=== PATIENT | female | born 1945 | race Caucasian/White ===

== ENCOUNTER 2021-01-20 14:54 | Inpatient (IN) | payer OTHER, BC ==
[~2021-01-20] VITALS: Ht 157.5 cm; Wt 96.6 kg
[2021-01-20 14:59] VITALS: BP 180/92
[2021-01-20 15:25] LABS: HEMATOCRIT 45.6 % (37.0-47.0); HEMOGLOBIN 15.1 gm/dL (12.0-15.0); MCH 31.5 pg (26.0-34.0); MCHC 33.1 g/dL (28.0-37.0); MCV 95.2 fL (80.0-100.0); RBC 4.79 mil/uL (4.20-5.00); RDW 13.5 % (10.5-14.5); WBC 10.8 thou/uL (4.0-11.0)
[2021-01-20 15:34] LABS: CALCIUM 9.1 mg/dL (8.5-10.1); POTASSIUM 4.3 mmol/L (3.5-5.1)
[2021-01-20 15:39] LABS: ALBUMIN 3.5 g/dL (3.4-5.0); TOTAL BILIRUBIN 0.3 mg/dL (0.2-1.0); TOTAL PROTEIN 7.4 g/dL (6.4-8.2)
[2021-01-20 17:46] LABS: URINE BILIRUBIN NEGATIVE (Negative); URINE BLOOD NEGATIVE (Negative); URINE CLARITY CLEAR; URINE COLOR YELLOW; URINE GLUCOSE-RANDOM* NEGATIVE (Negative); URINE KETONES NEGATIVE (Negative); URINE LEUKOCYTES-REFLEX NEGATIVE (Negative); URINE NITRITE-REFLEX NEGATIVE (Negative); URINE PROTEIN (DIPSTICK) NEGATIVE (Negative); URINE UROBILINOGEN 0.2 E.U./dl (0.2-1.0)
[2021-01-20 18:19] VITALS: BP 238/96
--- NOTE | 2021-01-20 18:23 | NUR ---
KEM WEST (FRIEND)-[phone]
[2021-01-20 18:38] VITALS: BP 187/66
[2021-01-20 19:32] VITALS: BP 148/64
[2021-01-20 21:00] VITALS: BP 190/73
[2021-01-20] MEDS ORDERED: FISH OIL 1,0001 EAC9 PO (21:37)
[2021-01-20] MEDS ORDERED: ASPIRIN EC81 M1 PO (21:39)
[2021-01-20] MEDS ORDERED: ZINC30 MG PO (21:42)
[2021-01-21 03:20] VITALS: BP 149/61
--- NOTE | 2021-01-21 07:23 | EKG ---
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: : 1945 Requested By: Ayush Samuels Order Number: [id number] MD: Pierre Blanco Measurements Intervals [place] Rate: 76 P: 47 VA: 188 QRS: -15 QRSD: 96 T: 53 QT: 440 QTc: 495 Interpretive Statements Sinus rhythm Probable left atrial enlargement Left ventricular hypertrophy Borderline prolonged QT interval No previous ECG available for comparison Electronically Signed On 01-21-2021 7:23:41 CDT by Pierre Blanco [email or web address] <ELECTRONICALLY SIGNED> By: Pierre Blanco MD, [facility] 01/21/21 0723 1521 1521 Pierre Blanco MD, FACC /EPI
--- NOTE | 2021-01-21 07:37 | NUR ---
RECEIVED REPORT FROM DAY SHIFT RN.PATIENT ON CARDENE GTT.PAIN WELL CONTROLLED WITH TYLENOL.BRADSHAW TO DD.NPO SINCE MIDNIGHT.MONITOR SHOWS SR.POC CONTINUED.
[2021-01-21 07:52] VITALS: BP 172/69
--- NOTE | 2021-01-21 11:40 | NUR ---
PT IS AXOX4, PLEASANT. VS BP 172/69, AFEBRILE, SR ON MONITOR. PT HAS NICARDIPINE GTT AT 10ML/HR; RECHECKED BP 163/64, REDUCED TO 5ML/HR. PT TO HAVE R HIP HEMIARTHROPLASTY THIS AM. ORTHO CONSULTED, DR SAAVEDRA CONSULTED. PT TAKEN TO PRE OP AT 1030. PT C/O OF SOME PAIN IN R HIP AREA RELATED TO R FEMUR. FALL PRECAUTIONS IN PLACE. PT COMMUNICATED UNDERSTANDING OF BEDREST. CONSENT SIGNED FOR PROCEDURE.
--- NOTE | 2021-01-21 15:05 | NUR ---
PT ADMITTED RELATED TO RIGHT FEMORAL NECK FRACTURE. CM REVIEWED CHART AND SPOKE WITH CARE TEAM. CM ATTEMPTED TO VISIT WITH PT TWICE THIS AM/EARLY AFTERNOON. PT WAS OFF THE UNIT FOR SURGERY. PT HAVING R HIP HEMIATHROPLASTY. CM CALLED AND SPOKE WITH PT'S SON DYLON . HE INDICATED THAT HIS MOM AND HIS FATHER RESIDE IN A HOUSE WITH A RAMP TO ENTER. 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 SON DYLON IS STAYING WITH FATHER NOW AND IS REACHING OUT TO ALWAYS THERE PD SERVICE RELATED TO ASSISTANCE. HE INIDCATED THAT HE KNOW SOMEONE OVER AT [facility] AND THAT THEY HAD REACHED OUT ON HIS BEHALF TO INQUIRE ABOUT PT GOING THERE SKILLED AND RESPITE FOR SPOUSE. KAYLEY CALLED LORI WELL AND SHE INDICATED SHE COULD LIKELY ACCEPT FOR SKILLED BUT SHE WASN'T SURE ABOUT THE RESPITE SHE DOESN'T HAVE ANY LTC BEDS OPEN. KAYLEY FAXED INITIAL CLINICAL OVER TO LORI AT [facility] FOR REVIEW. AWAITING THERAPY EVALS. CM FOLLOWING REGARDING DC PLANNING.
[2021-01-21 15:36] LABS: HEMOGLOBIN 14.7 gm/dL (12.0-15.0); MCH 31.7 pg (26.0-34.0); MCHC 32.7 g/dL (28.0-37.0); RBC 4.64 mil/uL (4.20-5.00); RDW 13.9 % (10.5-14.5)
--- NOTE | 2021-01-21 18:49 | NUR ---
RECEIVED THE PATIENT CONSCIOUS AND ORIENTED.ON ROOM AIR BREATHING SPONTANEOUSLY.WITH BRADSHAW CATHETER INTACT. HAD RIGHT HEIARTHROPLASTY TODAY FOR THE FRACTURED FEMORAL NECK.WAS ON NICARDIPINE DRIP WHEN WE RECIVED IN THE MORNING BUT WAS STOPPED IN THE OT PATIENT'S BLOOD PRESSURE HAS BEEN CONTROLLED.PATINE MAURICIOAS VITALLY STABLE POST SURGERY, DENIED ANY PAIN.ALL NEEDS ATTENDED
[2021-01-21 19:37] VITALS: BP 158/74
[2021-01-22 00:05] VITALS: BP 152/66
[2021-01-22 03:57] VITALS: BP 154/68
[2021-01-22 04:48] LABS: HEMATOCRIT 39.3 % (37.0-47.0); MCH 31.8 pg (26.0-34.0); MCHC 33.1 g/dL (28.0-37.0); MCV 96.1 fL (80.0-100.0); RBC 4.09 mil/uL (4.20-5.00); RDW 13.7 % (10.5-14.5); WBC 12.4 thou/uL (4.0-11.0)
--- NOTE | 2021-01-22 06:32 | NUR ---
PAIN WELL CONTROLLED WITH TYLENOL.RIGHT UPPER LEG DRESSING C/D/I.BRADSHAW TO DD.FERNANDO GTT NOT USED TONIGHT.MONITOR SHOWS SR.POC CONTINUED.
[2021-01-22 07:33] VITALS: BP 179/73
--- NOTE | 2021-01-22 08:02 | NUR ---
ASSUMED PT CARE AT 0700, AT 0800 ASSESSMENT PERFORMED CHARTED. VSS. WILL CONTINUE TO MONITOR. PT STATES HER PAIN IS CONTROLLED AT THIS MOMENT. WILL CONTINUE TO FOLLOW POC.
--- NOTE | 2021-01-22 08:59 | 2DMMODE ---
[facility] [place] [address] 2 D/M-MODE ECHOCARDIOGRAM Name: KIESHA MARK ANN Room #: 208-P ADM IN M.R.#: [id number] Admission: 01/20/21 Attend Phys: Jc Andrade MD Discharge: Date of : 43 Report #: [id number] THIS REPORT FOR: cc: Josie Geiger MD, Jennifer L MD Lammoglia, Francisco J. MD ~ APPROVED REPORT Study performed: 01/22/2021 08:11:41 EXAM: Comprehensive 2D, Doppler, and color-flow Echocardiogram Patient Location: Bedside Room #: 208 Status: routine BSA: 1.96 HR: 70 bpm BP: 179/73 mmHg Rhythm: NSR Other Information Study Quality: Adequate Indications Severe HTN. 2D Dimensions RVDd: 37.34 mm IVSd: 12.94 (7-11mm) LVOT Diam: 19.69 (18-24mm) LVDd: 45.27 mm PWd: 10.06 (7-11mm) LVDs: 28.47 (25-40mm) Left Atrium: 36.33 (27-40mm) Aortic Root: 36.05 mm Volumes Left Atrial Volume (Systole) Single Plane 4CH: 64.24 mL Single Plane 2CH: 46.25 mL LA ESV Index: 31.00 mL/m2 Aortic Valve AoV Peak Bhavin.: 1.46 m/s AO Peak Gr.: 8.49 mmHg LVOT Max P.11 mmHg LVOT Max V: 1.13 m/s JAYLON Vmax: 2.36 cm2 [facility] [address] [place] [address] 2 D/M-MODE ECHOCARDIOGRAM Name: KIESHA MARK Room #: 208-P [facility] IN ..#: [id number] Admission: 01/20/21 Attend Phys: Jc Andrade MD Discharge: Date of : 43 Report #: [id number] Mitral Valve E/A Ratio: 0.6 MV Decel. Time: 450.75 ms MV E Max Bhavin.: 0.63 m/s MV A Bhavin.: 1.09 m/s MV PHT: 130.72 ms IVRT: 110.73 ms Pulmonary Valve PV Peak Bhavin.: 1.00 m/s PV Peak Gr.: 3.99 mmHg Tricuspid Valve RAP Estimate: 5.00 mmHg Left Ventricle The left ventricle is normal size. There is normal LV segmental wall motion. Mild basal septal hypertrophy is present. Left ventricular systolic function is normal. LVEF is 65%. Mild diastolic dysfunction is present (impaired relaxation pattern). Right Ventricle The right ventricle is normal size. The right ventricular systolic function is normal. Atria Left atrium is at the upper limits of normal. The right atrium size is normal. Aortic Valve The aortic valve is normal in structure. No aortic regurgitation is present. There is no aortic valvular stenosis. Mitral Valve The mitral valve is normal in structure. Trace mitral regurgitation. No evidence of mitral valve stenosis. Tricuspid Valve The tricuspid valve is normal in structure. There is no tricuspid valve regurgitation noted. Unable to assess PA pressure. Pulmonic Valve Pulmonic valve is not well visualized. There is no pulmonic valvular regurgitation. Great Vessels [facility] [address] [place] [address] 2 D/M-MODE ECHOCARDIOGRAM Name: KIESHA MARK Room #: 208-P [facility] IN M.R.#: [id number] Admission: 01/20/21 Attend Phys: Jc Andrade MD Discharge: Date of : 43 Report #: [id number] The aortic root is normal in size. Ascending aorta is not well visualized. IVC is normal in size and collapses >50% with inspiration. Pericardium There is no pericardial effusion. <Conclusion> The left ventricle is normal size. Mild basal septal hypertrophy is present. LVEF is 65%. Left atrium is at the upper limits of normal. The aortic valve is normal in structure. The mitral valve is normal in structure. Trace mitral regurgitation. The tricuspid valve is normal in structure. There is no tricuspid valve regurgitation noted. Unable to assess PA pressure. Pulmonic valve is not well visualized. The aortic root is normal in size. There is no pericardial effusion. <ELECTRONICALLY SIGNED> By: Danie Tirado MD 01/22/21858 8 8 Danie Tirado MD /INF
--- NOTE | 2021-01-22 11:41 | NUR ---
PT WORKING WITH OT/PT THIS EARLY AFTERNOON. PT RATES PAIN AT A 3. PAIN MEDICATION GIVEN. PTS VSS. WILL CONTINUE TO MONITOR AND FOLLOW POC.
[2021-01-22 15:30] VITALS: BP 152/65
--- NOTE | 2021-01-22 15:47 | NUR ---
patient evaled by [facility] and accepted. Patient reports her spouse accepted to [facility] for respite care. She reports she is planning skilled rehab at facility so can be with her spouse. patient will consider [facility] but leaning to [facility]. Updated [facility] liason. Sp with son. He reports Richa admission at [facility] reports she stated have bed for patient and spouse. Casemgt has call to Richa at [facility]. Faxed clinical updates to [facility]. Updated son patient also considering [facility].
--- NOTE | 2021-01-22 15:52 | NUR ---
PT BACK IN BED FOLLOWING SITTING UP IN THE CHAIR FOR SOME TIME. PT DENIES PAIN AT THIS TIME. VSS. WILL CONTINUE TO MONITOR.
--- NOTE | 2021-01-22 18:44 | NUR ---
GAVE REPORT TO [facility]. RN VOICED NO CONCERNS AT THIS TIME, PT WILL BE TRANSFERRED AFTER SHIFT CHANGE.
[2021-01-22 20:38] VITALS: BP 180/66
[2021-01-22 22:12] VITALS: BP 181/65
[2021-01-23 00:11] VITALS: BP 155/58
--- NOTE | 2021-01-23 05:09 | NUR ---
ASSUMED CARE OF PT FROM 2N AROUND SHIFT CHANGE. PT IS AOX4 ANMD LETS NEEDS BE KNOWN. FALL PRECAUTION IN PLACE. BRADSHAW IN PLACE AND PATIENT. PT IS ON CLEAR LIQUID DIET AND IS READY TO ADVANCE. REPORTED SOME R HIP PAIN; PRNS PROVIDED. PT DENIED NAUSEA OR SOA. ASSESSMENT CHARTED. PT SLEPT PART OF THE SHIFT. PRN BP MEDICATION ORDERED AND GIVEN. NO S/S OF ACUTE DISTRESS. WILL CONTINUE TO MONITOR.
[2021-01-23 05:24] VITALS: BP 137/98
[2021-01-23 05:32] LABS: HEMATOCRIT 37.3 % (37.0-47.0); HEMOGLOBIN 12.2 gm/dL (12.0-15.0); MCH 31.8 pg (26.0-34.0); MCHC 32.8 g/dL (28.0-37.0); MCV 96.9 fL (80.0-100.0); RBC 3.84 mil/uL (4.20-5.00); RDW 13.8 % (10.5-14.5); WBC 11.1 thou/uL (4.0-11.0)
[2021-01-23 08:08] VITALS: BP 155/65
--- NOTE | 2021-01-23 14:12 | NUR ---
FAXED CLINICAL UPDATES, THERAPY NOTES AND NEGATIVE COVID RESULT TO [facility]. WILL CONFIRM WITH LORI/LIAISON THAT THEY RECEIVED AND IF ADDITIONAL INFORMATION NEEDED. [facility] P [phone]; FAX [phone]
[2021-01-23 16:04] VITALS: BP 184/66
--- NOTE | 2021-01-23 16:44 | NUR ---
CM MET WITH PT AT BEDSIDE THIS DAY. CM ASKED IF PT HD DETERMINED IF SHE WANTED [facility]. SHE INDICATED THAT SHE DIDN'T FEEL MEDICALLY STABLE TO DC ANYWHERE THIS DAY THAT SHE FELT LIKE SHE HIT A WALL. SHE SAID SHE WAS STILL DISCUSSING WITH HER SON. CM NOTIFED PHYSICIAN, 5[facility], AND VS. CM TO FOLLOW UP WITH PT IN THE AM.
--- NOTE | 2021-01-23 19:35 | NUR ---
ASSUMED CARE OF PT AT 0700 THIS MORNING. PT WAS ADMITTED AFTER REPAIR OF RIGHT HIP AND HTN. PT'S B/P HAS BEEN UNDER BETTER CONTROL. PT STATED SHE HAS BEEN MORE TIRED TODAY BUT WAS ABLE TO WORK WITH PHYS TH AND OT. PT HAS ANGELO DRESSING WITH ICE PK AND SYLVIA HOSE AND SCD'S IN PLACE. IV IN RIGHT WRIST WITH SL. ASSESSMENTS NOTED IN CHART AND OTHERWISE UNREMARKABLE. CALL LIGHT AND OTHER NEEDS ARE PLACED WITHIN REACH. MEDS AND TX GIVEN NEEDED AND CHARTED.
[2021-01-23 19:53] VITALS: BP 187/77
--- NOTE | 2021-01-24 05:03 | NUR ---
RECEIVED CARE OF THIS PATIENT AT 1900. PATIENT ALERT AND ORIENTED X4. UP WITH ASSIST OF 1. DRESSING ON R HIP INTACT. ICE APPLIED. HAS TEDS AND SCD'S ON. HAS PIV IN BOTH HANDS. C/O PAIN, MED GIVEN. SLEPT LITTLE THIS SHIFT.
[2021-01-24 05:13] VITALS: BP 197/78
[2021-01-24 08:02] VITALS: BP 174/64
--- NOTE | 2021-01-24 11:40 | O ---
[facility] [place] [address] OPERATIVE REPORT Name: KIESHA MARK Room #: 447-P ADM IN M.R.#: [id number] Admission: 01/20/21 Attend Phys: Jc Andrade MD Discharge: Date of : 43 Report #: [id number] THIS REPORT FOR: cc: Josie Geiger MD, Jennifer L MD Kneidel, Matthew T. MD ~ DOC #: [id number] Kaden Baird MD DATE OF SERVICE: 01/21/2021 PREOPERATIVE DIAGNOSIS: Right hip femoral neck fracture. POSTOPERATIVE DIAGNOSIS: Right hip femoral neck fracture. PROCEDURE: Right hip hemiarthroplasty. SURGEON: Kaden Baird MD DOOR CLAMPER: None. ANESTHESIA: General. ESTIMATED BLOOD LOSS: 100 mL DRAINS: No drains. TOURNIQUETS: No tourniquets. COMPLICATIONS: No complications. DESCRIPTION OF PROCEDURE: The patient was brought to the operating room where she was placed under general anesthesia. Once under adequate general anesthesia, she was placed into a lateral decubitus position on the operative table. The right hip was then prepped and draped in a sterile manner. A 14 cm longitudinal incision was made overlying the tip of the greater trochanter, dissected down through the soft tissue to the tensor fascia, which was incised in line with the incision exposing the posterolateral aspect of the hip. The short external rotators along with the piriformis were then elevated along with the joint from the hip. Any hematoma was evacuated. The femoral head was identified and removed utilizing a corkscrew extractor and a towel clip. Once removed, this was measured as a size 44 femoral head. The femoral neck was then cut to length and subsequently, the femur was reamed and broached to a size 7 cemented stem. Trial components were then placed for a bipolar hemiarthroplasty. This did appear to be stable. Therefore, the final components were brought to the back table and the wound was irrigated copiously. The femoral canal was prepared for cementation. The cement stopper was placed [address] [address] OPERATIVE REPORT Name: JASJOB Room #: 447-P [facility] IN .R.#: [id number] Admission: 01/20/21 Attend Phys: Jc Andrade MD Discharge: Date of : 43 Report #: [id number] and the femoral canal was then cemented with the femoral stem then placed. The bipolar head and neck were impacted onto the femoral stem and subsequent reduction was achieved. Excellent stable reduction was achieved. The wound was irrigated copiously. The capsular layer was repaired with #2 FiberWire suture. A #5 FiberWire was used to repair the piriformis back to the piriformis fossa. The wound was irrigated once again copiously and closed with #1 Vicryl in the deep fascia, 2-0 Vicryl in subcutaneous tissues and bello were used for the skin. The wounds were dressed with Xeroform, 4 x 4's, and sterile soft compressive dressing was placed. There were no complications from the procedure. The patient tolerated the procedure well and was sent to the recovery room without incident. MD ALEJANDRA Cervantes/JALIL <ELECTRONICALLY SIGNED> By: Kaden Baird MD 01/24/21 1140 19 31 Kaden Baird MD /nt
--- NOTE | 2021-01-24 14:25 | NUR ---
ASSUMED PT CARE THIS AM. PT IS ALERT & ORIENTED X4. PT HAS IV SITE ON R HAND AND L HAND SALINE LOCKED. PT IS ON ROOM AIR. PT RATED PAIN 3/10 ON R HIP. PT HAS ANGELO DRESSING AND ICE PACK ON R HIP. PT IS ON ROOM AIR. PT HAS BRADSHAW CATH IN PLACE. PT WAS WORKING WITH PHYSICAL AND OCCUPATIONAL THERAPY TODAY. NO C/O OF NAUSEA AND VOMITING. PT TOLERATED MEDICATION WELL. PT ON THE CHAIR WITH ALARM ON. WILL CONTINUE TO MONITOR PT. FOLLOW POC.
[2021-01-24 16:17] VITALS: BP 160/64
--- NOTE | 2021-01-24 16:52 | NUR ---
CM MET WITH PT AT BEDSIDE THIS DAY. PT INDICATED SHE IS INTERESTED IN DISCHARGING TO [facility]. WE FOUND OUT THAT PT'S SPOUSE'S ADMISSION TO [facility] WAS DEPENDENET ON HER GOING THERE BUT SON AND PT ARE AGREEABLE WITH PT GOING TO 5[facility]. CM PROVIDED ALTERNATE POSSIBLE RESPITE OPTIONS TO PT'S SON AND HE IS LOOKING INTO PLACEMENT FOR HIM. PT IS TO DC TO [facility] THIS DAY. NO OTHER CM INTERVENTION INDICATED. CASE CLOSED.
[2021-01-24] MEDS ORDERED: XARELTO10 MG PO (17:23)
[2021-01-24] MEDS ORDERED: ACCUPRIL40 MG PO (17:23)
[2021-01-24] MEDS ORDERED: ACETAMINOPHEN325 M1 PO (17:23)
[2021-01-24] MEDS ORDERED: METOPROLOL SUCC25 M1 PO (17:23)
[2021-01-24] MEDS ORDERED: NORVASC5 MG PO (17:23)
--- NOTE | 2021-01-28 12:02 | HC ---
[facility] [place] [address] CONSULTATION Name: KIESHA MARK Room #: 447-P [facility] IN M.R.#: [id number] Admission: 01/20/21 Attend Phys: Jc Andrade MD Discharge: 01/24/21 Date of : 43 Report #: [id number] THIS REPORT FOR: cc: Josie Geiger MD, Jennifer L MD Smithson, David G. MD ~ DOC #: [id number] Oz Vance MD DATE OF SERVICE: 01/22/2021 HISTORY OF PRESENT ILLNESS: The patient is a 75-year-old white female who tripped on a wet floor at the onset of right hip pain. She was admitted to [facility] and noted to have a right femoral neck fracture. She had severe hypertension upon admission, blood pressure 216/116. She was placed on IV Cardene drip. Orthopedics saw her and she underwent a right hip hemiarthroplasty on 01/21/2021. Allowed weightbearing as tolerated. She is continuing with close internal medicine management of her significant hypertension. We are seeing her in rehabilitation medicine consultation. PAST MEDICAL HISTORY: Really quite benign. She notes she has not seen a physician for years. MEDICATIONS: Please see the previous medication listing. She was not on medications previous to her hospitalization. ALLERGIES: AMOXICILLIN AND PENICILLIN. SOCIAL HISTORY: Lives in a house with spouse. No steps. There is a ramp to get in. 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 Her son is currently caring for him and they are talking about respite care for her. REVIEW OF SYSTEMS: She did not offer any current complaints of chest pain, shortness of breath or abdominal discomfort. PHYSICAL EXAMINATION: GENERAL: The patient is a pleasant 75-year-old white female in no obvious distress. She is an excellent historian. VITAL SIGNS: Temperature 36.8, pulse 73, respirations 18, blood pressure 179/73. NEUROLOGIC: The patient is alert and oriented. Facies appeared symmetric. Functional range of motion of both upper extremities without focal weakness. DTRs appeared to be intact. Tone intact. Lower extremities, no focal calf swelling. She can dorsiflex that right ankle. No obvious focal weakness of her left lower extremity. I did not test her proximal right lower extremity. She has not been seen by therapy as of yet. She is allowed weightbearing as [address] [address] CONSULTATION Name: KIESHA MARK Room #: 447-P [facility] IN .R.#: [id number] Admission: 01/20/21 Attend Phys: Jc Andrade MD Discharge: 01/24/21 Date of : 43 Report #: [id number] tolerated as per orthopedics. IMPRESSION: A 75-year-old white female with the following problems: 1. Right femoral neck fracture, status post right hip hemiarthroplasty, 01/21/2021. weightbearing as tolerated. 2. Significant hypertension, warranting IV Cardene. 3. Functional mobility and ADL deficits. 4. The patient previously cared for her . So other arrangements are needing to be made. PLAN: Therapy evaluations are underway. She certainly may warrant an acute in-hospital inpatient rehabilitation stay as she further medically stabilizes. We will be glad to follow along with you regarding her rehab therapy needs. Oz Vance MD DGS <ELECTRONICALLY SIGNED> By: Oz Vance MD 01/28/21 1202 0909 [id number] Oz Vance MD /nt
== END 2021-01-24 18:38 | DRG 522 ==
LOC: ER 14:54 → 4S 16:43 → 2N 16:43 → EROBS 16:43 → 4S 17:00 → EROBS 18:18 → 2N 18:56 → 4S 01-22 19:28
PROVIDERS: Emergency Medicine; Orthopaedic Surgery Foot and Ankle Surgery; ADMIT Surgery; ATTEND Surgery
PROC: 0SRR0J9 Replacement of Right Hip Joint, Femoral Surface with Synthetic Substitute, Cemented, Open Approach (ICD-10-PCS; principal; 2021-01-21)
DX: S72.001A Fracture of unspecified part of neck of right femur, initial encounter for closed fracture (principal); I16.0 Hypertensive urgency; E66.01 Morbid (severe) obesity due to excess calories; R53.81 Other malaise; Z20.822 Contact with and (suspected) exposure to COVID-19; Z88.1 Allergy status to other antibiotic agents; Z88.0 Allergy status to penicillin; Z73.6 Limitation of activities due to disability; Z79.82 Long term (current) use of aspirin; Z79.899 Other long term (current) drug therapy; Z68.38 Body mass index [BMI] 38.0-38.9, adult; W01.0XXA Fall on same level from slipping, tripping and stumbling without subsequent striking against object, initial encounter; Y93.01 Activity, walking, marching and hiking; Y92.098 Other place in other non-institutional residence as the place of occurrence of the external cause; Y99.8 Other external cause status
CPT/HCPCS: 10102; 10797; 50010; 50101; 50382; 50414; 51057; 51130; 51225; 51226; 51412; 53000; 56525; 56531; 57116; 57117; 62110; 62900; 70005

== ENCOUNTER 2021-01-24 16:12 | Inpatient (IN) | payer OTHER, BC ==
[~2021-01-24] VITALS: Ht 157.5 cm; Wt 93.4 kg
[~2021-01-24 16:12] MED LIST: ASPIRIN EC81 M1 PO; FISH OIL 1,0001 EAC9 PO; ZINC30 MG PO
[2021-01-24] MEDS ORDERED: ACCUPRIL40 MG PO (17:23)
[2021-01-24] MEDS ORDERED: NORVASC5 MG PO (17:23)
[2021-01-24] MEDS ORDERED: XARELTO10 MG PO (17:23)
[2021-01-24] MEDS ORDERED: METOPROLOL SUCC25 M1 PO (17:23)
[2021-01-24] MEDS ORDERED: ACETAMINOPHEN325 M1 PO (17:23)
--- NOTE | 2021-01-24 18:45 | NUR ---
PT ARRIVED TO UNIT VIA W/C. PT SETTLED IN BED AND VS OBTAINED. PT IN STABLE CONDITION AND DENIES ANY PAIN. PT HAS SURGERY ON 01/21 HEMIARTHROPLASTY TO RT HIP. PT IS WBAT TO RT. PT USES WALKER TO AMBULATE. PT ON TOTAL HIP PRECAUTIONS AT THIS TIME AND NEEDS ABDUCTOR WEDGE PILLOW WHILE IN BED.
[2021-01-24 19:37] VITALS: BP 181/66
--- NOTE | 2021-01-25 04:06 | NUR ---
FULL ADMISSION ASSESMENT PERFORMED DURING THIS SHIFT. PATIENT IS A&OX4, ABLE TO MAKE NEEDS KNOWN. ADMISSION TO REHAB INFORMATION AND EDUCATION PROVIDED, ALL CONSENTS FORMS WERE SIGNED. PATIENT REEPORTED MILD PAIN IN RIGHT HIP, ICE PACK PROVIDED AND PRN TYLENOL ADMNISTERED. ON HIP PRECAUTIONS, PILLOW PLACED BETWEEN LEGS, WBAT. ANGELO DRESSING IN PLACE AT RIGHT HIP INCISION, DRESSING IS CDI. PATIENT REPORTS HAVING LAST BM ON 01/20, REFUSED TO HAVE ANY LAXITIVES WHEN OFFERED, BS ARE PRESENT AND ACTIVE, ABD IS NON-DISTENDED, PATIENT REPORTS PASSING FLATUS. PATIENT'S MAIN GOAL FOR REHAB WAS TO RETURN TO PRE-ADMISSION LEVEL OF INDEPENDENCE IN ORDER TO RETURN TO ROLE 'S PRIMARY CAREGIVER. BRADSHAW IN PLACE, YELLOW URINE DRAINING. DENIES SOB, CHEST PAIN, NAUSEA AND VOMITING. SCD PLACED ON BILATERAL LOWER EXTREMITIES, NEW SLEEVES PROVIDED. CALL LIGHT W/IN REACH, BED ALARM ON, FREQUENTLY USED ITEMS W/IN REACH. WILL CONTINUE TO MONITOR.
[2021-01-25 06:02] LABS: HEMATOCRIT 37.6 % (37.0-47.0); HEMOGLOBIN 12.5 gm/dL (12.0-15.0); MCHC 33.2 g/dL (28.0-37.0); MCV 96.6 fL (80.0-100.0); RBC 3.89 mil/uL (4.20-5.00); RDW 13.5 % (10.5-14.5)
[2021-01-25 06:22] LABS: CALCIUM 8.2 mg/dL (8.5-10.1); CREATININE 0.8 mg/dL (0.6-1.0); POTASSIUM 3.8 mmol/L (3.5-5.1)
--- NOTE | 2021-01-25 08:00 | NUR ---
Chart review, Camacho visited with Miracle White at bedside. A & O x 3, prefers to go by Nita and able to make her needs know. Intro to cm, team meeting and dcp. She lives at home with her spouse, who is wc bound, she provided physical assist at home to help home. 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 Independent prior to hospital. Have ramp to enter home. Manage her own and medication. No hh in for herself in past. Spouse is on with [facility]. Will cont. following as needed for dc needs.
--- NOTE | 2021-01-25 09:26 | NUR ---
ASSUMED CARE OF PT AT 0715. PT IS A&OX4. IS ON ROOM AIR. IS STABLE. DENIES PAIN, N/T, IN RIGHT HIP & EXTREMITY. ANGELO DRSG C/D/I. ABDUCTOR PILLOW IN PLACE. CONTINUES ON HIP PRECAUTIONS. IS UP WITH 1 ASSIST, GB, WALKER. IS WT BEARING SOUMYA. FALL PRECAUTIONS & HOURLY ROUNDING CONTINUED THIS SHIFT. LABS & VITALS REVIEWED. CALL LIGHT WITHIN REACH. PT REPORTED THAT SHE HASN'T SLEEP WELL IN DAYS. WOULD LIKE TO GET REST. WILL CONTINUE TO MONITOR.
--- NOTE | 2021-01-25 12:46 | NUR ---
Nutrition: pt admitted with right femoral neck fracture, S/P hemiarthroplasty. Consult received. Noted 70-100% of meals recorded on heart healthy diet. Pt disagrees rather states eating about 50%. C/O too much food and decreased appetite post op. Is aware of option to order meals. Stable weights. BM today Pt requesting ensure daily as she received on acute. Will order one/day. Consider pt low nutrition risk.
[2021-01-25 16:18] LABS: FOLIC ACID 17.8 ng/mL (8.6-58.9)
[2021-01-25 16:54] LABS: CHOLESTEROL 146 mg/dL (<200); HDL CHOLESTEROL 37 mg/dL (>40); LDL CHOLESTEROL 86 mg/dL (<100); TC:HDL 3.9 Ratio (Not establshd); TRIGLYCERIDE 119 mg/dL (<150); VLDL 24 mg/dL (<40)
[2021-01-25 20:32] VITALS: BP 163/61
--- NOTE | 2021-01-26 02:53 | NUR ---
ASSUMED CARE AT 1900 OF 01/25. PATIENT IS A&OX4. DENIES PAIN OR SOB. BRADSHAW IN PLACE AND DRAINING CLEAR YELLOW URINE. PATIENT REFUSED STOOL SOFTNER AND LAXITIVE BECUASE SHE HAD 2 LOOSE STOOLS DURING THE DAY. MODERATE ASSIST OF ONE USING GB AND WALKER FOR TRANSFERS. PATIENT REQUESTED TO USE WHEELCHAIR TO GO TO BATHROOM. ON ROOM AIR, PATIENT CURRENTLY SLEEPING. NO CONCERNS AT THIS TIME WILL CONTINUE TO MONITOR.
[2021-01-26 07:05] VITALS: BP 151/68
--- NOTE | 2021-01-26 11:43 | NUR ---
REMOVED BRADSHAW CATH AT 0720.
--- NOTE | 2021-01-26 11:43 | NUR ---
ASUMED CARE OF PT AT 0700. PT A&OX4. PT WORRIED ABOUT HAVING BRADSHAW REMOVED. EX[LAINED PROCEDURE, PT STATES UNDERSTANDING. PT. WILLINGLY WORKS WITH THERAPIES. PT USES CALL LIGHT APPROPRIATELY. TOLERATING DIET. C/O PAIN TO R HIP, TYLENOL GIVEN WITH STATED GOOD RELIEF. DRESSING TO RIGHT HIP IS CDI, ANGELO DRESSING IN PLACE. POSTERIOR HIP PRECATIONS MAINTAINED. PT GAIT STEADY WITH WALKER AND GB. WILL CONTINUE TO MONITOR.
[2021-01-26 19:17] VITALS: BP 148/62
--- NOTE | 2021-01-27 05:25 | NUR ---
ASSUMED CARE AT 1900 OF 01/26. PATIENT IS A&OX4. DENIES CURRENT ACUTE PAIN IN RIGHT HIP, PATIENT REPORTS APPLICATION OF ICE PACK TO AREA HAS BEEN EFFECTIVE AT MANAGING PAIN. MINIMAL ASSIST OF 1 WITH GB AND WALKER FOR TRANSFERS AND AMBULATION TO BATHROOM. PATIENT WAS ABLE TO VOID 300CC OF URINE AT HS. ANGELO DRESSING IN PLACE AND INTACT ON RIGHT HIP. REMAINS ON TOTAL HIP PRECAUTIONS. PATIENT REFUSED LAXITIVE AND STOOL SOFTNERS, BS ARE PRESENT AND ACTIVE, ABD IS SOFT TO PALPATION. NO CONCERNS AT THIS TIME, WILL CONTINUE TO MONITOR.
[2021-01-27 07:15] VITALS: BP 167/56
--- NOTE | 2021-01-27 15:16 | NUR ---
ASSESSMENT CHARTED. PT ALERT AND ORIENTED. PRN PAIN MED GIVEN BEFORE PHYSICAL THERAPY. NO CONCERNS AT THIS TIME.
[2021-01-27 19:51] VITALS: BP 165/60
--- NOTE | 2021-01-28 05:30 | NUR ---
PT AMBULATING TO BATHROOM WITH ASSIST X1 AND IS TOLERATING FAIR. DENIES PAIN. RESTING COMFORTABLY. NO NEEDS VOICED. CALL LIGHT WITHIN REACH. FREQUENT OBSERVATION.
[2021-01-28 08:21] VITALS: BP 172/59
--- NOTE | 2021-01-28 09:22 | NUR ---
PT UP TO BATHROOM WITH X1 ASSIST. PT WANTED TO GET UP TO W/C AND THEN TRANSFER TO BATHROOM. PT DRESSING INTACT TO RT HIP. NOTICED AN AREA ABOVE HIP SIZE OF A DIME THAT IS OPEN. PT STATED HER PAIN IS THROBBING AND ACHEY TO RT HIP. PT ABDUCTOR PILLOW AT BEDSIDE. PT STATED SHE HAS SLIGHT BACK PAIN FROM BED, PT STATED NORMALY SHE LAYS ON HER SIDE NOT ON HER BACK. PT TAKES CARE OF AT HOME AND SINCE FALL HE IS IN A FACILITY AND DON'T KNOW HOW SHE WILL PAY FOR THAT. PT VOIDING WITHOUT ANY ISSUES SINCE BRADSHAW WAS OUT. PT REFUSED MIRALAX AND COLACE THIS AM AND ALSO CALCIUM TAB STATING IT MAKES HER CONSTIPATED. PT STATED SHE DIDN'T SEE A DR. PRIOR TO COMING TO HOSPITAL AND HER BP WAS ELEVATED.
--- NOTE | 2021-01-28 13:09 | NUR ---
ADM TYLENOL 325MG 2 TABS PO FOR PAIN TO RT HIP. TOOK A PIC OF RT HIP WOUND AREA. PT HAS BEEN UP IN W/C MOST OF DAY.
--- NOTE | 2021-01-28 17:30 | NUR ---
PT DIDN'T WANT TO EAT MUCH FOR DINNER. APPLIED ABDUCTION PILLOW BETWEEN LEGS, PT STATED SHE FEELS MORE COMFORTABLE WITH RT HIP.
[2021-01-28 19:45] VITALS: BP 149/68
--- NOTE | 2021-01-29 04:08 | NUR ---
ASSUMED CARE AT 1900 OF 01/28. PATIENT IS A&OX4. DENIES ACUTE PAIN. MINIMAL EMMY TO 1 W/ TRANSFERS AND AMBULATION, USING WALKER AND GB. PATIENT REFUSED LAXITIVES AND STOOL SOFTNERS, BS ARE PRESENT AND ACTIVE, ABD IS NON-DISTENDED AND SOFT TO PALPATION. ANGELO DRESSING IN PLACE AND INTACT ON RIGHT HIP. PATIENT REQUESTED FOR ICE PACK TO BE PLACED AT RIGHT HIP TO MANAGE PAIN. CURRENTLY SLEEPING IN BED, BED ALARM ON, CALL LIGHT W/IN REACH. NO CONCERNS AT THIS TIME WILL CONTINUE TO MONITOR.
[2021-01-29 12:30] VITALS: BP 108/55
--- NOTE | 2021-01-29 13:26 | NUR ---
Team meeting, recommendation: walking 35ft with fww. Dc 30th hh with [facility] ( nursing, pt, and ot).
--- NOTE | 2021-01-29 17:12 | NUR ---
ASSUMED C'O PT. AT 0700. PT A&OX4. PT GAIT STEADY WITH WALKER AND GB TO TOILET. PT TOLERATING DIET. PT CALL LIGHT APPROPRIATE AND WORKS WITH THERAPIES. DRESSING CHANGED TODAY PER ORDER. INCSCION IS WELL APPROXIMATED W/O DRAINAGE OR REDNESS. BP MONITORED PER ORDER. PO TYLENOL GIVEN WITH STATED GOOD RELIEF. PT REMAINS ON RA. WILL CONTNIUE TO MONITOR.
[2021-01-29 19:20] VITALS: BP 181/70
--- NOTE | 2021-01-30 03:25 | NUR ---
ASSUMED CARE AT 1900 OF 01/29. PATIENT IS A&OX4, DENIES ACUTE PAIN OR SOB. MINIMAL ASSIST OF 1 W/ TRANSFERS AND AMBULATION, USING GB AND WALKER. PATIENT CONTINUES TO REFUSE LAXITIVES AND STOOL SOFTNER, LAST BM WAS ON 01/29, BS ARE PRESENT AND ACTIVE, ABD IS NON-DISTENDED AND SOFT TO PALPATION. DRESSING OVER RIGHT HIP INCISION IS CDI. PATIENT CONTINUES TO PLACE ICE PACK BY INCISION CITE TO MANAGE PAIN. NO CONCERNS AT THIS TIME, WILL CONTINUE TO MONITOR.
[2021-01-30 08:00] VITALS: BP 141/60
--- NOTE | 2021-01-30 09:28 | NUR ---
ASSUMED CARE OF PT AT 0700 THIS MORNING. PT WAS ADMITTED FOR REHAB OF RIGHT HIP FX. PT IS AMBULATORY WEIGHT TOLERATED. PT IS A/OX4. ASSESSMENTS CHARTED AND OTHERWISE UNREMARKABLE. MEDS AND TX GIVEN NEEDED AND SCHEDULED.
--- NOTE | 2021-01-30 11:43 | NUR ---
faxed referral to [facility] phone # [phone], fax # [phone]
--- NOTE | 2021-01-30 16:48 | HC ---
[facility] [place] [address] CONSULTATION Name: KIESHA MARK Room #: 512-P ADM IN .R.#: [id number] Admission: 01/24/21 Attend Phys: Oz Vance MD Discharge: Date of : 43 Report #: [id number] THIS REPORT FOR: cc: Josie Geiger MD, Jennifer L MD Deutch,Hesham Melendrez. PhD ~ DOC #: [id number] Hesham Heller, PhD DATE OF SERVICE: 01/28/2021 NEUROBEHAVIORAL STATUS EXAM ATTENDING PHYSICIAN: Oz Vance MD CONSULTING PHYSICIAN: Hesham Heller, PhD. CLINICAL PRESENTATION: The patient is a 75-year-old female, initially admitted to the hospital on 01/20/2021 after tripping on a wet floor while at a [employer] shop. She sustained a right femoral neck fracture. Her presentation in the E.R. also included severe hypertension. The blood pressure on admission was 216/116. The patient is allowed weightbearing. She underwent a right hip hemiarthroplasty on 01/21/2021. She is admitted to the rehabilitation unit and is weightbearing as tolerated. Her assessment on admission to the rehabilitation unit was a right femoral neck fracture, status post right hip hemiarthroplasty on 01/21/2021, weightbearing as tolerated, significant hypertension, initially warranting an IV Cardene drip prior to admission, deep venous thrombosis prophylaxis and functional mobility and activities of daily living deficits. Neuropsychological consultation was requested to provide assistance in the assessment of cognitive and emotional status and to provide recommendations and services. Prior to this most recent medical event, she was living independently in her home with her . Her is wheelchair bound and carries a diagnosis of recent stroke and MS. She has been caring for him as well as managing her own affairs. The patient has two children. One son lives in [place] and the other within the [facility]. She and her do not have siblings. He is currently in an assisted care facility at [facility]. She is recovering in the hospital. 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 TECHNIQUES UTILIZED: Clinical interview, review of medical records, staff consultation, behavioral observation, mini mental status exam 2 standard version and clock drawing. EXAMINATION FINDINGS: The patient was alert and cooperative with the [facility] [address] [place] [address] CONSULTATION Name: KIESHA MARK Room #: 512-P [facility] IN M.R.#: [id number] Admission: 01/24/21 Attend Phys: Oz Vance MD Discharge: Date of : 43 Report #: [id number] assessment. She does not present with an aphasia. Her thoughts are logical and goal oriented. There is no evidence of auditory or visual hallucinations. She describes her symptoms to include sleep disturbance secondary to pain, decreased appetite and increased anxiety as she is worried about the wellbeing of her spouse. She does not report problems with cognitive functioning including memory or word finding, depression or having had prior treatment for mood disorder. Performance on the MMSE 2 brief version suggests a mild deficit in immediate recall. She was 3/3 for initial registration, 5/5 for orientation to time, 4/[address] and 1/3 for immediate recall of 3 items after a brief time delay and distraction. Moderate deficits are suggested by performance on the MMSE 2 SV with a raw score of 22/30, T-score 31 and percentile rank of 3. She is 1/5 for serial sevens, 2/2 for naming, 1/1 for repetition, 3/3 for auditory comprehension. She could read and follow a single command and write a sentence. However, the patient was unable to accurately copy a simple geometric design. Deficits were initially noted in clock drawing that was associated with poor planning and impulsivity. However, with increased structure her performance improved to within normal limits. Mild deficits were noted in immediate recall, sustained concentration and attention and visual spatial construction. Additionally, anxiety in regard to the wellbeing of her and pain is described as interfering with sleep. DIAGNOSTIC IMPRESSION: Mild neurocognitive disorder, unspecified, without behavior disorder. However, neurocognitive disorder is likely associated with variability in blood pressure with vascular features. Unspecified anxiety disorder. RECOMMENDATIONS: The patient may benefit from a brief speech therapy to assist in compensatory strategies for variability in cognition. However, as her blood pressure stabilizes, cognition may return to within normal limits. If cognitive symptoms persist, she may benefit from followup neuropsychological testing to clarify neurocognitive status. The use of relaxation strategies may be of benefit in managing anxiety. She is likely to benefit from increased assistnce in the management of her spouse upon discharge. [address] [address] CONSULTATION Name: KIESHA MARK Room #: 512-P ADM IN M.R.#: [id number] Admission: 01/24/21 Attend Phys: Oz Vance MD Discharge: Date of : 43 Report #: [id number] Thank you very much for allowing me to provide the consultation on this patient. Hesham Heller, PhD CHERISE/MONICA/MICHI <ELECTRONICALLY SIGNED> By: Hesham Heller, PhD 01/30/21 1648 [id number] Hesham Heller, PhD /nt
[2021-01-30 19:16] VITALS: BP 130/58
[2021-01-31 07:15] VITALS: BP 139/60
--- NOTE | 2021-01-31 08:54 | NUR ---
PT LYING IN BED AND WANTED TO KNOW WHEN IS THERAPY DUE TO NEEDING TYLENOL 30 MIN PRIOR TO REHAB. PT ALSO NEEDED TO VOID. PT FINISHED BREAKFAST AND TOOK MEDS WITH THIN WATER. PT LUNGS CLEAR, BOWEL SOUNDS PRESENT. PT REFUSED STOOL SOFTNER AND MIRALAX DUE TO BM YESTERDAY. PT WALKS WITH WALKER AND GAIT BELT. PT USES ICE TO RT HIP. PT STATED NO PAIN WHILE IN BED, WHEN GETTING UP OUT OF BED SHE HAS PAIN OF 4 ON 1-10 SCALE. ADM TYLENOL 325MG 2 TABS PRE-MEDICATION PRIOR TO THERAPY.
--- NOTE | 2021-01-31 12:02 | NUR ---
Pt would like to have diet liberalized. Please address with physician.
--- NOTE | 2021-01-31 12:03 | NUR ---
Follow up: Pt healing well, reports portions are larger than she is used to citing this as reason for 60% intake avg. She requested Ensure d/c since her intake is better. Also requested to have diet liberalized. Wt stable. Remains low nutrition risk.
[2021-01-31 12:40] VITALS: BP 129/46
--- NOTE | 2021-01-31 13:32 | NUR ---
ADM TYLENOL 325MG 2 TABS PO FOR PRE-MEDICATE PRIOR TO THERAPY. PT STATED NO PAIN NOW UNTIL WORKING WITH THERAPY.
--- NOTE | 2021-01-31 15:12 | NUR ---
Cont. with weekly team meetings and dcp as needed. dc 30th with [facility] ( pt, ot, nursing).
--- NOTE | 2021-01-31 17:30 | NUR ---
OFFERED PT TYLENOL TABS, PT STATED SHE WAS OK AND DIDN'T NEED THEM. PT DID WANT FRESH ICE IN BAG WHEN SHE GETS BACK TO BED.
[2021-01-31 19:30] VITALS: BP 149/61
--- NOTE | 2021-02-01 04:57 | NUR ---
ASSUMED CARE AT 1900 OF 01/31, PATIENT IS A&OX4. DENIES PAIN OR SOB. PATIENT CONTINUES TO REFUSE STOOL SOFTNER AND LAXITIVE. OTHER MEDICATIONS ADMINISTERED ORDERED. MINIMAL ASSIT OF 1 WITH TRANSFERS, AND STANDBY ASSIST WITH ABULATION USING GB AND WALKER. NO CONCERNS AT THIS TIME, WILL CONTINUE TO MONITOR.
[2021-02-01 07:15] VITALS: BP 152/61
--- NOTE | 2021-02-01 08:18 | NUR ---
PT LYING IN BED THIS AM. PT HAS PILLOW BETWEEN LEGS. PT DIDN'T LIKE THE ABDUCTION PILLOW. PT STATED NO PAIN AT THIS TIME, PT LIKES TO TAKE TYLENOL FOR PAIN 30 MIN PRIOR TO PHYSICAL THERAPY. PT LUNGS CLEAR. PT HAD BM EARLY THIS AM AND REFUSED STOOL LAXATIVES. PT USES WALKER WHEN AMBULATING. DRESSING TO RT HIP INTACT. PT STATED THAT SHE CAN'T EAT VERY MUCH DUE TO THE PROPORTIONS OF THE FOOD SERVED. PT IN CHEERFUL MOOD THIS AM.
--- NOTE | 2021-02-01 11:00 | NUR ---
ADM METHOCARBAMOL 500MG FOR MUSCLE SPASM TO RT LEG.
--- NOTE | 2021-02-01 13:56 | NUR ---
ADM TYLENOL 325MG 2 TABS PO FOR PAIN TO RT HIP OF 4 ON 1-10 SCALE.
[2021-02-01 13:58] VITALS: BP 139/56
[2021-02-01 21:46] VITALS: BP 151/50
--- NOTE | 2021-02-02 02:43 | NUR ---
assumed care approx 1899 evening 02/01. pt sitting up in w/c in room alert and oriented x4, pleasant and cooperative visiting with visitors in room. pt up to toilet with walker and 1 assist at hs. pt denied need for pain med. pt took hs meds with water tolerating well. pt appears to be sleeping soundly. bed alarm on and call light in reach. will continue to monitor.
[2021-02-02 06:02] LABS: ABSOLUTE NEUTROPHILS 4.8 thou/uL (1.4-8.2); EOSINOPHILS 3.1 % (0.0-3.0); HEMOGLOBIN 11.7 gm/dL (12.0-15.0); LYMPHOCYTES 34.9 % (24.0-44.0); MCH 31.7 pg (26.0-34.0); MCHC 32.4 g/dL (28.0-37.0); MCV 97.8 fL (80.0-100.0); MONOCYTES 8.4 % (1.0-8.0); PLATELET COUNT 318 thou/uL (150-400); POLYS 52.6 % (36.0-66.0); RBC 3.68 mil/uL (4.20-5.00); RDW 13.6 % (10.5-14.5)
[2021-02-02 06:15] LABS: CALCIUM 8.5 mg/dL (8.5-10.1); CREATININE 0.9 mg/dL (0.6-1.0); POTASSIUM 4.2 mmol/L (3.5-5.1)
[2021-02-02 08:00] VITALS: BP 137/55
--- NOTE | 2021-02-02 11:37 | NUR ---
Received awake on bed. Due medications given as prescribed, able to swallow meds w/o difficulty. On room air. Vital signs stable. On MS, not on telemetry; no complains and signs of chest pain, crushing sensation and heaviness. Assisted in ADLs. On regular diet- tolerating well; no nausea, no vomiting and no abdominal pain noted. Continent of bowel and bladder, able to go to the toilet with standby assist, gait belt and walker. No complains of pain made during assessment but pt requesting to be pre-medicated prior to PT session this afternoon. No IV noted. To continue monitoring patient.
[2021-02-02 12:46] VITALS: BP 141/62
[2021-02-02 16:40] VITALS: BP 151/69
[2021-02-02 19:26] VITALS: BP 133/47
--- NOTE | 2021-02-03 02:46 | NUR ---
assumed care approx 1900 evening 02/02. pt alert and oriented x4, pleasant and cooperative. pt up to bathroom with walker with 1 assist before hs. pt took hs meds with water tolerating well. pt appears to be sleeping soundly. bed alarm on and call light in reach. will continue to monitor.
--- NOTE | 2021-02-03 08:11 | NUR ---
ASSUMED CARE AT 0700. PATIENT IS ALERT AND ORIENTED X4. PATIENT SINHA'S, PROFILE GRINDER TECHNICIAN ARE EQUAL. LUNGS ARE CLEAR AND DEMINISHISHED. ABD IS SOFT WTIH BSX4. DRESSING TO RIGHT HIP IS DRY AND INTACT. UP WITH ASSIST OF 1 STAFF AND GAIT BELT TO THE CHAIR FOR MEALS. UP TO THE BATHROOM TO VOID SEAN COLORED URINE. FALL AND SAFETY PROTOCOLS IN PLACE. C/O MILD PAIN IN RIGHT HIP. MEDICATED WITH PRN PAIN MED. CONTINUES TO PROGRESS SLOWLY TOWARDS D/C GOALS. WILL CONTINUE TO MONITER.
[2021-02-03 08:37] VITALS: BP 146/69
--- NOTE | 2021-02-03 12:00 | NUR ---
ASSUMBED CARE OF PT AT 1200. PT DID GET UP FOR DINNER IN W/C. PT DENIES ANY PAIN THIS SHIFT TO RT HIP.
--- NOTE | 2021-02-03 18:00 | NUR ---
TOOK PT TO XRAY PER DR. PEREZ ORDERS FOR RT FEMUR/PELVIS. PT STATED PAIN IS BETTER TO RT HIP AT THIS TIME. PT LEFT VIA W/C AND BACK TO ROOM. PT DENIES ANY PAIN TO RT HIP AT THIS TIME.
[2021-02-03 19:06] VITALS: BP 141/58
--- NOTE | 2021-02-04 04:22 | NUR ---
PT BEEN RESTING W/O ANY NEW ACUTE DISTRESS.A/OX4.VSS.S/P RIGHT HIP FX W/ORIF.PT USES WALKER AND GAIT BELT TO AMBULATES TO BR WITH SUPERVISION.C/O RIGHT THIGH MUSCLE PAINS THAT IS EXACERBATED BY ACTIVITIES/MOVEMENT.XRAY WAS NEGATIVE AND PT IS AWARE OF THE RESULTS.PT WAS OFFERED PAIN MEDS BUT DECLINED STATING PAIN GETS BETTER W/REST.PT ANTICIPATING TO BE DISCHARGED ON THURSDAY TO HOME.PT PROGRESSING WELL TO DSICHARGE GOALS.
[2021-02-04 07:15] VITALS: BP 149/67
--- NOTE | 2021-02-04 12:35 | H ---
[facility] [place] [address] HISTORY AND PHYSICAL Name: KIESHA MARK Room #: 501-A ADM IN M.R.#: [id number] Admission: 01/24/21 Attend Phys: Oz Vance MD Discharge: Date of : 43 Report #: [id number] THIS REPORT FOR: cc: Josie Geiger MD, Jennifer L MD Smithson,Oz Lira MD ~ DOC #: [id number] Oz Vance MD DATE OF SERVICE: 01/25/2021 HISTORY AND PHYSICAL AND OVERALL PLAN OF CARE HISTORY OF PRESENT ILLNESS: The patient is a 75-year-old female who was originally admitted on 01/20/2021 after tripping on a wet floor with the onset of right hip pain. She was noted to have a right femoral neck fracture. She had severe hypertension. Upon admission, blood pressure 216/116. She was placed on an IV Cardene drip. Orthopedics saw her and she underwent a right hip hemiarthroplasty on 01/21/2021. She is allowed weightbearing as tolerated. She is warranted close Internal Medicine involvement with her significant hypertension. She has functional mobility and ADL deficits and has been admitted for acute in-hospital inpatient rehabilitation. PAST MEDICAL HISTORY: Otherwise, rather benign. She has not seen a physician in years. MEDICATIONS: Please see the full medication listing as noted. ALLERGIES: AMOXICILLIN AND PENICILLIN. SOCIAL HISTORY: Lives in a house with spouse. No steps. There is a ramp to get in. She had been caring for her who has had prior CVA and recurring MS. Her family is involved and apparently they just had him placed at [facility]. REVIEW OF SYSTEMS: No current complaints of chest pain, shortness of breath or abdominal discomfort. PHYSICAL EXAMINATION: GENERAL: The patient is a pleasant 75-year-old white female, in no obvious distress. VITAL SIGNS: Last recorded temperature 98.1, pulse 67, respirations 17, blood pressure is 181/66. GENERAL: The patient is alert, pleasant, oriented, excellent historian. Facies appeared symmetric. CHEST: Clear to auscultation. CARDIOVASCULAR: Regular rate and rhythm. [facility] [address] [place] [address] HISTORY AND PHYSICAL Name: KIESHA MARK Room #: 501-A ADM IN ..#: [id number] Admission: 01/24/21 Attend Phys: Oz Vance MD Discharge: Date of : 43 Report #: [id number] ABDOMEN: Bowel sounds positive, nontender. GENITOURINARY AND RECTAL: Deferred. EXTREMITIES: She has functional range of motion of both upper extremities without obvious focal weakness. DTRs are trace to 1. In lower extremities, no focal calf swelling. Right hip is dressed. She can dorsiflex the right ankle. No obvious focal weakness of her left lower extremity. I did not test her proximal right lower extremity. Functionally, she is working in therapies. Lower body dressing is mod assist, upper body dressing is set up. She has been ambulating a short distance approximately 15 feet with a front-wheeled walker and is needing min assist with basic transfers and mobility. She is allowed weightbearing as tolerated. ASSESSMENT: A 75-year-old white female with the following problem list: 1. Right femoral neck fracture, status post right hip hemiarthroplasty on 01/21/2021, weightbearing as tolerated. 2. Significant hypertension. Initially, warranting IV Cardene prior to rehabilitation admission. 3. Deep venous thrombosis prophylaxis, using SCDs and she is on anticoagulation with Xarelto. 4. Functional mobility and activities of daily living deficits. PLAN: The patient is admitted for acute in-hospital inpatient rehabilitation. Initial plan of care involves the interdisciplinary acute inpatient rehabilitation program with the goal of maximizing her functional independence, so she can hopefully return back to her prior living situation. She does have the indwelling Reich catheter at this time and is very hesitant to have it removed, but is amenable to having its removal tomorrow a.m. with a voiding trial and post-Reich cath protocol. As far as measurable functional goals, the goal would be for her to be modified independent with transfers, mobility and ADLs at the walker level. Prognosis is reasonably good with estimated length of stay probably 7-14 days pending progress. Potential barriers would include her multiple medical comorbidities and decreased functional status. The patient meets diagnostic criteria for an acute in-hospital inpatient rehabilitation stay. She meets the medical necessity criteria and we will have the insurance consultant physicians continue to follow. She does have the tolerance for therapies and has appropriate discharge goals back to the home setting. The overall plan of care is based on the pre-admit screen and information garnered from therapy assessments. 1. Estimated length of stay is probably again 7 to 14 days. 2. Medical prognosis is reasonably good. 3. Anticipated interventions include the interdisciplinary acute inpatient palpitation program. [facility] [address] [place] [address] HISTORY AND PHYSICAL Name: KIESHA MARK Room #: 186-A ADM IN M.R.#: [id number] Admission: 01/24/21 Attend Phys: Oz Vance MD Discharge: Date of : 43 Report #: [id number] 4. Anticipated functional outcomes would be for the patient to become modified independent with transfers, mobility, ADLs to maximize her independence, so she can return back to the home setting. 5. Discharge destination would be back to the home setting. She had been caring for her , so she will be back returning alone, although she does have involved other family members that might be able to assist if warranted. 6. Expected therapy by discipline includes PT and OT 1-1/2 hours per day each 5 days a week throughout the duration of the acute inpatient rehabilitation stay. ADDENDUM: The patient's prognosis for significant practical improvement within a reasonable period of time appears good. Given the patient's complex medical condition and risk of further medical complication, rehabilitation services could not be safely provided at the lower level of care such as a [facility] facility. Oz Vance MD DGS/ELIZABETH <ELECTRONICALLY SIGNED> By: Oz Vance MD 02/04/21 1235 [id number] Oz Vance MD /nt
--- NOTE | 2021-02-04 13:20 | NUR ---
Assumed pt care this am. Pt is alert & oriented x4. Pt is up with assist x1 with walker and gaitbelt. Pt is on room air. Pt has BM this am. Pt c/o of muscle spams on R thigh. Pt tolerated medication and diet well. No c/o of nausea and vomiting during the shift. Pt is on the chair with alarms on. Will continue to monitor pt. Follow poc.
[2021-02-04 19:30] VITALS: BP 158/63
--- NOTE | 2021-02-05 05:15 | NUR ---
ASSUMED CARE AT 1900 OF 02/04. PATIENT IS A&OX4. STAND BY ASSIST OF 1 USING GB AND WALKER FOR TRANSFERS AND AMBULATION. PATIENT REQUESTED FOR METHOCARBOMAL AT HS TO HELP WITH RIGHT THIGH MUSCLE CRAMPS DURING THE NIGHT, PATIENT REPORTS EFFECTIVENESS OF MUSCLE RELAXER. SLEEPING IN BED, BED ALARM ON AND CALL LIGHT W/IN REACH. ABLE TO MAKE NEEDS KNOWN. WILL CONTINUE TO MONITOR.
[2021-02-05 08:00] VITALS: BP 142/56
--- NOTE | 2021-02-05 09:08 | NUR ---
PT SITTING UP IN W/C THIS AM. PT STATED SHE THINKS SHE IS GOING TO HAVE ANOTHER BM. PT REFUSED COLACE THIS AM. PT HAS BEEN GETTING METHOCARBAMOL FOR MUSCLE TIGHTNESS TO RT THIGH. PT UP WITH WALKER, TALKING ABOUT PT BEING MOD I TODAY.
--- NOTE | 2021-02-05 09:13 | NUR ---
ADM METHOCARBANOL 500MG PO FOR PRE-MEDICATION PRIOR TO THERAPY. BIENVENIDO DIESEL ENGINE PIPE FITTER IN ROOM TALKING ABOUT CHANGING FREQUENCY OF METHOCARBANOL.
--- NOTE | 2021-02-05 12:28 | NUR ---
Team meeting, reccomendation: Cont. with dc tomorrow with [facility](pt, ot, nursing). Quiana out. Mod I in the room with FWW. Provider plus will deliver fww prior to dc. No driving till cleared by ortho.
[2021-02-05 18:59] VITALS: BP 158/66
--- NOTE | 2021-02-05 23:05 | NUR ---
PT ASSESSMENT COMPLETED AND VSS. MEDS GIVEN ORDERED AND WELL TOLERATED. FALL PRECAUTIONS IN PLACE. PT HAD VERY SEVERE PAIN THIS EVENING. MUSCLE RELAXER WORKED WELL TO CONTROL PAIN. PT MOD I IN ROOM WITH WALKER. STEADY. PT DENIES NEEDS. SLEEPING. WILL CONTINUE TO MONITOR FREQUENTLY.
[2021-02-06 07:15] VITALS: BP 184/75
[2021-02-06 07:45] VITALS: BP 158/63
[2021-02-06] MEDS ORDERED: ACCUPRIL40 MG PO (09:30)
[2021-02-06] MEDS ORDERED: VITAMIN D325 MC1 PO (09:30)
[2021-02-06] MEDS ORDERED: IRON325 PO (09:30)
[2021-02-06] MEDS ORDERED: METHOCARBAMOL500 M2 PO (09:30)
[2021-02-06] MEDS ORDERED: MIRALAX17 GM PO (09:30)
[2021-02-06] MEDS ORDERED: XARELTO10 MG PO (09:30)
[2021-02-06] MEDS ORDERED: HYDRALAZINE 10M10 MG PO (09:30)
[2021-02-06] MEDS ORDERED: FELODIPINE ER10 MG PO (09:30)
--- NOTE | 2021-02-06 10:25 | NUR ---
ASSUMED CARE AT 0700. PATIENT IS ALERT AND ORIENTEDX4. PATIENT SINHA'S, NEWSPAPER INSERTER ARE EQUAL. LUNGS ARE CLEAR AND DEMINISHED. ABD IS SOFT WITH BSX4. PATIENT IS MOD/I IN THE ROOM. PATIENT REFUSED HER COLACE TODAY. UP IN W/C FOR MEALS. FALL AND SAFETY PROTOCOLS IN PLACE. C/O PAIN/SPASMS IN HER RIGHT HIP. MEDICATED WITH PRN PAIN MED AND ANTISPASMOTIC. PATIENT CONTINUES TO PROGRESS TOWARDS D/C LATER TODAY. WILL CONTINUE TO MONITER.
[2021-02-06] MEDS ORDERED: VITAMIN B-121000 MC3 PO (10:42)
[2021-02-06 10:50] VITALS: BP 158/63
[2021-02-06 11:03] VITALS: BP 158/63
[2021-02-06 14:14] VITALS: BP 158/63
--- NOTE | 2021-02-06 15:20 | NUR ---
HH orders faxed and confirmed with [facility].
--- NOTE | 2021-02-06 17:09 | NUR ---
DISCHARGE INSTRUCTIONS GIVEN TO PATIENT. PATIENT VERBALIZED UNDERSTANDING OF INSTRUCTIONS. PATIENT LEFT UNIT IN GOOD CONDITIONS WITH ALL OF HER BELONGINGS INSTRUCTINS, AND SCRIPTS. PATIENT LEFT WITH SON PER W/C.
--- NOTE | 2021-02-06 19:20 | NUR ---
PATIENT SON HERE AT 7:00 PM TO P/U PATIENT. PATIENT IS MOD/I IN ROOM AND TRANSFERED FROM CHAIR TO W/C. PATIENT LEFT IN GOOD CONDITION WITH ALL OF HER BELONGINGS.
== END 2021-02-06 19:26 | disposition home health service (06) | DRG 947 ==
PROVIDERS: Nurse Practitioner; ADMIT Physical Medicine & Rehabilitation; ATTEND Physical Medicine & Rehabilitation
DX: R53.81 Other malaise (principal); S72.001A Fracture of unspecified part of neck of right femur, initial encounter for closed fracture; I10 Essential (primary) hypertension; G31.84 Mild cognitive impairment of uncertain or unknown etiology; F41.9 Anxiety disorder, unspecified; W01.0XXA Fall on same level from slipping, tripping and stumbling without subsequent striking against object, initial encounter; I16.0 Hypertensive urgency; E66.01 Morbid (severe) obesity due to excess calories; R26.89 Other abnormalities of gait and mobility; D64.9 Anemia, unspecified; Y92.89 Other specified places as the place of occurrence of the external cause; Y99.8 Other external cause status; Y93.E5 Activity, floor mopping and cleaning; Z88.1 Allergy status to other antibiotic agents; Z88.0 Allergy status to penicillin; Z68.37 Body mass index [BMI] 37.0-37.9, adult
CPT/HCPCS: 10112